=== PATIENT | female | born 1965 | race Two or more races ===

== ENCOUNTER 2022-08-03 08:55 | Inpatient (IN) | payer BC ==
[~2022-08-03] VITALS: Ht 175.3 cm; Wt 84.8 kg
--- NOTE | 2022-08-03 09:00 | NUR ---
RECEIVED PT 57 YRS FEMALE FROM HOME C/O ABDOMINALE PAIN FOR 10 YRS ANDD DIARRHEA THIS MORNING abdomin soft none tender to touch
--- NOTE | 2022-08-03 09:10 | NUR ---
inserted ang catheter g [address] on [address] wrist blood drow and sent to lab
[2022-08-03] MEDS ORDERED: ONDANSETRON HCL/PF 4 MG/2 ML VIAL ONE ×2 (09:27→14:33)
[2022-08-03] MEDS ORDERED: MORPHINE SULFATE INJ 4 MG/ML DISP.SYRIN ONE ×3 (09:28→14:33)
[2022-08-03] MEDS ORDERED: IV NS 0.9% 1,000 ML BAG IV ONE (09:30)
[2022-08-03] MEDS ORDERED: MORPHINE SULFATE INJ 2 MG/ML DISP.SYRIN IV ONE ×2 (09:30→14:00)
[2022-08-03] MEDS ORDERED: ONDANSETRON HCL/PF 4 MG/2 ML VIAL IVP ONE (09:30)
[2022-08-03 09:35] LABS: BASOPHILS % (AUTO) 0.2 % (0.0-2.0); EOSINOPHILS % (AUTO) 0.5 % (0.0-6.0); HEMATOCRIT 46 % (33-45); HEMOGLOBIN 14.4 g/dL (11.5-14.8); LYMPHOCYTES # (AUTO) 0.6 K/uL (0.8-4.8); LYMPHOCYTES % (AUTO) 6.7 % (20.0-44.0); MEAN CORPUSCULAR HGB CONC 31 g/dl (31.0-36.0); MEAN CORPUSCULAR VOLUME 86 fL (82-100); MONOCYTES # (AUTO) 0.4 K/uL (0.1-1.30); NEUTROPHILS # (AUTO) 8.6 K/uL (1.8-8.9); NEUTROPHILS % (AUTO) 88.6 % (43.0-81.0); PLATELET COUNT (AUTO) 281 K/uL (150-450); RED BLOOD CELL COUNT(AUTO) 5.35 MIL/uL (4.0-5.2); WHITE BLOOD COUNT (AUTO) 9.7 K/uL (4.3-11.0)
[2022-08-03 09:43] LABS: CALCIUM, SERUM 8.4 mg/dL (8.5-10.1); CREATININE 1.7 mg/dL (0.6-1.3)
[2022-08-03 09:49] LABS: ALBUMIN 3.5 g/dL (3.4-5.0); BILIRUBIN,DIRECT 0.2 mg/dL (0.0-0.2); BILIRUBIN,TOTAL 0.9 mg/dL (0.2-1.0); TOTAL PROTEIN, SERUM 7.2 g/dL (6.4-8.2)
[2022-08-03] MEDS ORDERED: IV NS 0.9% 1,000 ML IV ONE (10:00)
[2022-08-03] MEDS ORDERED: CT SWABBABLE VALVE TRANS SET 1 EA INFUS.SET MC ONE (10:28)
[2022-08-03] MEDS ORDERED: IOHEXOL-300 100 ML VIAL IV ONE (10:28)
[2022-08-03] MEDS ORDERED: IV NS 0.9% 250 ML IV ONE (10:29)
--- NOTE | 2022-08-03 10:32 | NUR ---
TO CT SCAN OF ABDOMIN
--- NOTE | 2022-08-03 11:32 | NUR ---
I&O CATHETER DONE FR 15 RED KAI CATHETER OUT PUT 150ML YELLOW COLOR
--- NOTE | 2022-08-03 11:33 | NUR ---
I&O catheter done urine sent to lab
--- NOTE | 2022-08-03 11:40 | NUR ---
COVID SWAB SENT TO LAB
--- NOTE | 2022-08-03 12:00 | NUR ---
MOVE SHEET SUBMITTED.
[2022-08-03 12:19] LABS: BILIRUBIN,URINE NEGATIVE (NEGATIVE); COLOR,URINE YELLOW (YELLOW); LEUKOCYTE ESTERASE ,URINE NEGATIVE (NEGATIVE); NITRITE, URINE NEGATIVE (NEGATIVE); PH,URINE 5.5 (5.0-8.0); PROTEIN,URINE TRACE mg/dl (NEGATIVE); UGLUCOSE 1+ mg/dL (NEGATIVE); UROBILINOGEN,URINE 0.2 EU/dL (0.2)
--- NOTE | 2022-08-03 13:05 | NUR ---
RESTING AND ASLEEPY NO PAIN NOTED
[2022-08-03 13:11] LABS: CALCIUM, SERUM 6.8 mg/dL (8.5-10.1); CREATININE 1.4 mg/dL (0.6-1.3); POTASSIUM 3.4 mmol/L (3.5-5.1)
[2022-08-03] MEDS ORDERED: ONDANSETRON HCL/PF 4 MG/2 ML VIAL IV ONE (14:00)
--- NOTE | 2022-08-03 14:15 | NUR ---
C/O ABDOMINALE PAIN 10/25 DR. PAIGE AWARE ORDER WAS GIVEN
[2022-08-03] MEDS ORDERED: MORPHINE SULFATE INJ 2 MG/ML DISP.SYRIN ONE (14:33)
--- NOTE | 2022-08-03 15:17 | NUR ---
RESTING AND ASLEEPY PAIN 0/10
[2022-08-03] MEDS ORDERED: PRED10TA PO (15:35)
[2022-08-03] MEDS ORDERED: PANT40TA2 PO (15:35)
[2022-08-03] MEDS ORDERED: DICY20TA11 PO (15:35)
[2022-08-03] MEDS ORDERED: HYDR4TAB57 PO (15:35)
[2022-08-03] MEDS ORDERED: COLE1TAB2 PO (15:35)
[2022-08-03] MEDS ORDERED: ONDA4TAB11 PO (15:35)
--- NOTE | 2022-08-03 16:09 | NUR ---
[facility] CALLED TEXTILE CONVERSION MANAGER PAGED.
--- NOTE | 2022-08-03 16:39 | NUR ---
GOT BED 329-1 ADMITTING INFORMED.
--- NOTE | 2022-08-03 17:15 | NUR ---
HAND OFF LAURITA CORTEZ TO ROOM 329-1 VIA SINAN DAVIS
--- NOTE | 2022-08-03 17:30 | NUR ---
URINE OUT PUT 650 ML YELLOW CLOUDY COLOR
[2022-08-03 18:00] VITALS: BP 113/66
[2022-08-03] MEDS ORDERED: DEXTROSE 50%-WATER 50 ML DISP.SYRIN IV PRN (18:00)
[2022-08-03] MEDS ORDERED: predniSONE 10 MG TABLET PO SCH (18:00)
[2022-08-03] MEDS ORDERED: ACETAMINOPHEN 325 MG TABLET PO PRN (18:00)
[2022-08-03] MEDS ORDERED: *INSULIN REGULAR(HUMULIN R)HUM 100 UNIT/ML VIAL SQ PRN (18:00)
[2022-08-03] MEDS ORDERED: DIPHENOXYLATE HCL/ATROP SULF 1 UDTAB TABLET PO PRN (18:00)
[2022-08-03] MEDS ORDERED: Z GUARD REMEDY 4 OZ OINT TP PRN (18:00)
--- NOTE | 2022-08-03 19:05 | NUR ---
MS RN RECEIVED A NEW ADMISSION FROM ED, 57 YEAR OLD FEMALE, CAME IN W/ CC OF ABD/DIARRHEA, DX GASTROENTERITIS, AWAKE ALERR,ORIENTED X4, ON ROOM AIR W/ ADEQUATE SATURATION DENIES PAIN AT THIS TIME, ALL NEEDS ATTENDED, WILL CONTONUE TO MONITOR PATIENT.WILL ENDORSED TO NEXT SHIFT FOR PIO.
[2022-08-03] MEDS: MORPHINE SULFATE INJ 2 MG/ML DISP.SYRIN IV PRN (19:12)
[2022-08-03] MEDS: ENOXAPARIN SODIUM 40 MG/0.4 ML DISP.SYRIN SQ SCH (19:13)
--- NOTE | 2022-08-03 19:45 | NUR ---
SUBSTATION OPERATOR CHIEF NOTES RECEIVED LYING ON BED SLEEPING,AROUSABLE TO VERBAL STIMULI,BREATHING EASY,NO SOB.SALINE LOCK RIGHT AND LEFT ARM INTACT AND PATENT.FALL PRECAUTION OBSERVED,BED ALARM,WILL CONTINUE TO MONITOR STATUS,CALL LIGHT IN REACH,NEEDS ANTICIPATED.
[2022-08-03 20:00] VITALS: BP_SYST 112; BP_DIAS 66; BP_DIAS 68
[2022-08-03] MEDS: Potassium Chloride 20 MEQ in IV NS 0.9% 1,000 ML IV PRN (20:11)
--- NOTE | 2022-08-03 20:11 | NUR ---
MS RN NOTES STARTED ON IVF NS WITH 20MEQ KCL,INFUSING AT 100 ML/HR RATE ON LEFT ARM SALINE LOCK VIA IV PUMP.
--- NOTE | 2022-08-03 22:00 | NUR ---
BAND STRAIGHTENER NOTES ACCU-CHECK BLOOD SUGAR CHECK 125MG/DL,NO INSULIN COVERAGE.
[2022-08-03] MEDS: BLOOD SUGAR DIAGNOSTIC 1 EACH STRIP IN SCH (22:49)
--- NOTE | 2022-08-04 00:15 | NUR ---
MS RN NOTES AWAKE THIS TIME,ASSISTED TO THE BATHROOM,VOIDED.
[2022-08-04] MEDS: MORPHINE SULFATE INJ 2 MG/ML DISP.SYRIN IV PRN ×5 (00:23→22:46)
--- NOTE | 2022-08-04 00:23 | NUR ---
MS RN NOTES PAIN MANAGEMENT C/O ABDOMINAL PAIN 8/10 ON PAIN SCALE.MORPHINE 2MG IV GIVEN ORDERED AND PER PATIENT REQUEST.
[2022-08-04] MEDS: BLOOD SUGAR DIAGNOSTIC 1 EACH STRIP IN SCH ×4 (05:37→21:44)
--- NOTE | 2022-08-04 06:00 | NUR ---
MS RN NOTES ACCU-CHECK BLOOD SUGAR CHECK 105MG/DL,NO INSULIN COVERAGE
--- NOTE | 2022-08-04 06:22 | NUR ---
MS RN NOTES SLEEP WELL WITH PAIN MANAGEMENT,ABLE TO WALK TO THE RESTROOM WITH ASSIST,PRESENT IVF TOLERATED WELL IN NO ACUTE DISTRESS.
[2022-08-04 06:56] LABS: BASOPHILS % (AUTO) 0.7 % (0.0-2.0); EOSINOPHILS % (AUTO) 1.5 % (0.0-6.0); HEMATOCRIT 35 % (33-45); HEMOGLOBIN 11.1 g/dL (11.5-14.8); LYMPHOCYTES % (AUTO) 22.1 % (20.0-44.0); MEAN CORPUSCULAR HGB CONC 31 g/dl (31.0-36.0); MEAN CORPUSCULAR VOLUME 85 fL (82-100); MONOCYTES # (AUTO) 0.3 K/uL (0.1-1.30); MONOCYTES % (AUTO) 6.5 % (2.0-12.0); NEUTROPHILS # (AUTO) 3.1 K/uL (1.8-8.9); NEUTROPHILS % (AUTO) 69.2 % (43.0-81.0); PLATELET COUNT (AUTO) 190 K/uL (150-450); RED BLOOD CELL COUNT(AUTO) 4.15 MIL/uL (4.0-5.2); WHITE BLOOD COUNT (AUTO) 4.4 K/uL (4.3-11.0)
--- NOTE | 2022-08-04 07:30 | NUR ---
RN MS NOTES PT IN BED, AWAKE, ALERT AND ORIENTED, NO COMPLAINT OF PAIN OR ANY DISCOMFORT AT THIS TIME, BREATHING PATTERN NORMAL, CALL LIGHT WITHIN REACH, NEEDS ATTENDED.
[2022-08-04 07:35] LABS: ALBUMIN 2.5 g/dL (3.4-5.0); BILIRUBIN,TOTAL 0.6 mg/dL (0.2-1.0); CALCIUM, SERUM 7.7 mg/dL (8.5-10.1); CREATININE 1.1 mg/dL (0.6-1.3); PHOSPHORUS 2.6 mg/dL (2.5-4.9); POTASSIUM 3.9 mmol/L (3.5-5.1); TOTAL PROTEIN, SERUM 5.4 g/dL (6.4-8.2)
[2022-08-04 07:41] LABS: THYROID STIMULATING HORMONE 0.269 uIU/mL (0.358-3.74)
[2022-08-04 08:00] VITALS: BP 137/77
[2022-08-04] MEDS: PANTOPRAZOLE 40 MG TABLET.DR PO SCH (08:45)
[2022-08-04] MEDS: DICYCLOMINE HCL 10 MG/5 ML UDC PO SCH ×3 (08:46→17:51)
[2022-08-04] MEDS: Potassium Chloride 20 MEQ in IV NS 0.9% 1,000 ML IV PRN (12:41)
--- NOTE | 2022-08-04 13:31 | NUR ---
RN MS NOTES PT SEEN AND EXAMINED BY DR. FIERRO, PLAN OF CARE DISCUSSED WITH PT, VERBALIZED UNDERSTANDING, PAIN MEDS GIVEN ORDERED, AMBULATES TO THE BATHROOM WITH STEADY GAIT.
[2022-08-04 16:00] VITALS: BP 103/82
[2022-08-04] MEDS: ENOXAPARIN SODIUM 40 MG/0.4 ML DISP.SYRIN SQ SCH (17:52)
--- NOTE | 2022-08-04 18:24 | NUR ---
RN MS NOTES PT IN BED, AWAKE, ALERT AND ORIENTED, PAIN MEDS GIVEN ORDERED, ABLE TO AMBULATE TO THE BATHROOM NEEDED, HAD SMALL BM THIS AFTERNOON, PASTY IN CONSISTENCY, NO DIARRHEA NOTED, ASSISTED WITH DINNER, BS CHECKED, NO S/S OF HYPO/HYPERGLYCEMIA NOTED, ALL NEEDS ATTENDED, IV FLUIDS INFUSING WELL.
--- NOTE | 2022-08-04 19:35 | NUR ---
RN MS NOTES PT IN BED, AWAKE, ALERT AND ORIENTED, ABLE TO AMBULATE TO THE BATHROOM NEEDED, ALL NEEDS ATTENDED, IV FLUIDS INFUSING WELL. CALL LIGHT WITHIN REACH. TABLE WITHIN REACH.
[2022-08-04 20:00] VITALS: BP 123/80
[2022-08-04] MEDS: INSULIN REGULAR, HUMAN 100 UNIT/ML 3 ML VIAL SQ PRN (21:45)
--- NOTE | 2022-08-04 21:45 | NUR ---
RN NOTE PT REFUSED INSULIN AT THIS ITME " MY SUGAR TENDS TO DROP I DONT WANT IT WE CAN CHECK IN THE MORNING IF ITS HIGH I WILL TAKE IT THEN. EDUCATION PROVIDED. REFUSED X3
--- NOTE | 2022-08-04 22:55 | NUR ---
RN NOTE PRN MORPHINE GIVEN FRO PAIN 8 TOLERATED WELL.
[2022-08-05] MEDS: Potassium Chloride 20 MEQ in IV NS 0.9% 1,000 ML IV PRN ×2 (03:24→17:49)
[2022-08-05] MEDS: INSULIN REGULAR, HUMAN 100 UNIT/ML 3 ML VIAL SQ PRN (06:26)
[2022-08-05] MEDS: BLOOD SUGAR DIAGNOSTIC 1 EACH STRIP IN SCH ×4 (06:32→21:32)
[2022-08-05 07:00] VITALS: BP 92/47
[2022-08-05 07:08] LABS: BASOPHILS % (AUTO) 0.8 % (0.0-2.0); EOSINOPHILS % (AUTO) 5.3 % (0.0-6.0); HEMATOCRIT 34 % (33-45); HEMOGLOBIN 10.6 g/dL (11.5-14.8); LYMPHOCYTES # (AUTO) 1.2 K/uL (0.8-4.8); LYMPHOCYTES % (AUTO) 31.4 % (20.0-44.0); MEAN CORPUSCULAR HGB CONC 32 g/dl (31.0-36.0); MEAN CORPUSCULAR VOLUME 85 fL (82-100); MONOCYTES # (AUTO) 0.3 K/uL (0.1-1.30); MONOCYTES % (AUTO) 8.6 % (2.0-12.0); NEUTROPHILS % (AUTO) 53.9 % (43.0-81.0); PLATELET COUNT (AUTO) 171 K/uL (150-450); RED BLOOD CELL COUNT(AUTO) 3.96 MIL/uL (4.0-5.2); WHITE BLOOD COUNT (AUTO) 3.8 K/uL (4.3-11.0)
[2022-08-05 07:24] LABS: CREATININE 0.8 mg/dL (0.6-1.3); MAGNESIUM 2.1 mg/dL (1.8-2.4); PHOSPHORUS 2.3 mg/dL (2.5-4.9); POTASSIUM 4.2 mmol/L (3.5-5.1)
--- NOTE | 2022-08-05 07:40 | NUR ---
MS RN OPENING NOTES RECEIVED PATIENT IN BED, ASLEEP BUT EASY TO AROUSE. A/O X4, ABLE TO MAKE NEEDS KNOWN. NO SIGNS OF ACUTE DISTRESS NOTED. ON ROOM AIR. TOLERATING WELL. NO SOB NOTED, BREATHING EVEN AND UNLABORED. NOTED WITH IV ACCESS ON LFA #20G RUNNING WITH NS + KCL 20 PATRICIA AT 100ML/HR. PATIENT DENIES ANY PAIN AT THIS TIME. SAFETY MEASURES PUT IN PLACE. BED IN LOW AND LOCKED POSITION. SIDE RAILS UP X2; CALL LIGHT AND TABLE WITHIN EASY REACH. WILL CONTINUE WITH PLAN OF CARE.
[2022-08-05] MEDS: PANTOPRAZOLE 40 MG TABLET.DR PO SCH (08:26)
[2022-08-05] MEDS: MORPHINE SULFATE INJ 2 MG/ML DISP.SYRIN IV PRN ×4 (08:31→21:33)
--- NOTE | 2022-08-05 08:31 | NUR ---
MS RN PRN MORPHINE 2MG GIVEN FOR ABDOMINAL PAIN 10/10 ON A NUMERIC PAIN SCALE, TOLERATED WELL. WILL CONTINUE TO MONITOR PATIENT.
[2022-08-05] MEDS: DICYCLOMINE HCL 10 MG/5 ML UDC PO SCH ×3 (08:39→17:32)
[2022-08-05] MEDS ORDERED: K PHOS NEUTRAL 250 MG TABLET PO ONE (09:30)
--- NOTE | 2022-08-05 12:42 | NUR ---
MS RN PRN MORPHINE 2MG GIVEN FOR ABDOMINAL PAIN 10/10 ON A NUMERIC PAIN SCALE, TOLERATED WELL. WILL CONTINUE TO MONITOR PATIENT.
[2022-08-05 16:00] VITALS: BP 113/77
--- NOTE | 2022-08-05 17:33 | NUR ---
MS RN PRN MORPHINE 2MG GIVEN FOR ABDOMINAL PAIN 10/10 ON A NUMERIC PAIN SCALE, TOLERATED WELL. WILL CONTINUE TO MONITOR PATIENT.
[2022-08-05] MEDS: ENOXAPARIN SODIUM 40 MG/0.4 ML DISP.SYRIN SQ SCH (17:49)
--- NOTE | 2022-08-05 19:04 | NUR ---
MS RN CLOSING NOTES PATIENT IN BED, AWAKE. A/O X4, ABLE TO MAKE NEEDS KNOWN. NO SIGNS OF ACUTE DISTRESS NOTED. ON ROOM AIR. TOLERATED WELL. NO SOB NOTED, BREATHING EVEN AND UNLABORED. NOTED WITH IV ACCESS ON RH #20G RUNNING WITH NS + KCL 20 PATRICIA AT 100ML/HR. PATIENT DENIES ANY PAIN AT THIS TIME. ALL DUE MEDS GIVEN. ALL NURSING NEEDS ATTENDED. SAFETY MEASURES IMPLEMENTED. BED IN LOW AND LOCKED POSITION. SIDE RAILS UP X2; CALL LIGHT AND TABLE WITHIN EASY REACH. WILL CONTINUE WITH PLAN OF CARE.
[2022-08-05] MEDS: ONDANSETRON HCL/PF 4 MG/2 ML VIAL IVP PRN (19:42)
--- NOTE | 2022-08-05 19:46 | NUR ---
MS RN OPENING NOTE PATIENT AWAKE IN BED,A/O X4, ABLE TO MAKE NEEDS KNOWN. PT STABLE ON RA, NO S/S OF DISTRESS OR SOB NOTED, BREATHING EVEN AND UNLABORED. IV ACCESS ON RIGHT HAND #20G INTACT AND INFUSING NS + KCL 20 PATRICIA AT 100ML/HR. PATIENT C/O NAUSEA, PRN ZOFRAN 4 MG Q6H IV GIVEN ORDERED. SAFETY MEASURES IN PLACE: BED LOCKED IN LOW POSITION, SIDE RAILS UP X 2, CALL LIGHT AND TABLE WITHIN REACH. WILL CONTINUE TO MONITOR
[2022-08-05 20:00] VITALS: BP 120/78
[2022-08-06] MEDS: Potassium Chloride 20 MEQ in IV NS 0.9% 1,000 ML IV PRN (04:52)
[2022-08-06] MEDS: BLOOD SUGAR DIAGNOSTIC 1 EACH STRIP IN SCH ×2 (06:34→11:40)
[2022-08-06] MEDS: INSULIN REGULAR, HUMAN 100 UNIT/ML 3 ML VIAL SQ PRN (06:34)
--- NOTE | 2022-08-06 06:41 | NUR ---
MS RN CLOSING NOTE PATIENT SLEEPING IN BED, A/O X 4, ABLE TO MAKE NEEDS KNOWN. PT STABLE ON RA, NO S/S OF DISTRESS OR SOB NOTED, BREATHING EVEN AND UNLABORED. IV ACCESS ON RIGHT HAND #20G INTACT AND INFUSING NS + KCL 20 PATRICIA AT 100ML/HR. NO SIGNIFICANT CHANGES, MEDICATIONS GIVEN ORDERED, PT NEEDS MET THROUGHOUT SHIFT. NO BOWEL MOVEMENT THIS SHIFT. SAFETY MEASURES IN PLACE: CALL LIGHT WITHIN REACH, SIDE RAILS UP X 2, BED LOCKED IN LOWEST POSITION, HOB ELEVATED, BED ALARM ON. WILL ENDORSE TO DAYSHIFT RN FOR CONTINUITY OF CARE
[2022-08-06 07:00] VITALS: BP 134/76
[2022-08-06 07:24] LABS: BASOPHILS % (AUTO) 0.7 % (0.0-2.0); EOSINOPHILS % (AUTO) 4.6 % (0.0-6.0); HEMATOCRIT 33 % (33-45); HEMOGLOBIN 10.5 g/dL (11.5-14.8); LYMPHOCYTES # (AUTO) 1.3 K/uL (0.8-4.8); LYMPHOCYTES % (AUTO) 27.7 % (20.0-44.0); MEAN CORPUSCULAR HGB CONC 32 g/dl (31.0-36.0); MEAN CORPUSCULAR VOLUME 87 fL (82-100); MONOCYTES # (AUTO) 0.4 K/uL (0.1-1.30); MONOCYTES % (AUTO) 7.6 % (2.0-12.0); NEUTROPHILS # (AUTO) 2.8 K/uL (1.8-8.9); NEUTROPHILS % (AUTO) 59.4 % (43.0-81.0); PLATELET COUNT (AUTO) 173 K/uL (150-450); RED BLOOD CELL COUNT(AUTO) 3.86 MIL/uL (4.0-5.2); WHITE BLOOD COUNT (AUTO) 4.8 K/uL (4.3-11.0)
[2022-08-06 07:32] LABS: CALCIUM, SERUM 8.1 mg/dL (8.5-10.1); CREATININE 0.7 mg/dL (0.6-1.3); MAGNESIUM 1.9 mg/dL (1.8-2.4); PHOSPHORUS 2.7 mg/dL (2.5-4.9); POTASSIUM 4.1 mmol/L (3.5-5.1)
--- NOTE | 2022-08-06 08:00 | NUR ---
MS RN OPENING NOTE PATIENT SLEEPING IN BED, A/O X 4, ABLE TO MAKE NEEDS KNOWN. PT STABLE ON RA, NO S/S OF DISTRESS OR SOB NOTED, BREATHING EVEN AND UNLABORED. IV ACCESS ON RIGHT HAND #20G INTACT AND INFUSING NS + KCL 20 PATRICIA AT 100ML/HR. SAFETY MEASURES IN PLACE: CALL LIGHT WITHIN REACH, SIDE RAILS UP X 2, BED LOCKED IN LOWEST POSITION, HOB ELEVATED, BED ALARM ON. WILL CONTINUE TO MONITOR.
[2022-08-06] MEDS: PANTOPRAZOLE 40 MG TABLET.DR PO SCH (08:20)
[2022-08-06] MEDS: DICYCLOMINE HCL 10 MG/5 ML UDC PO SCH (08:24)
[2022-08-06] MEDS: MORPHINE SULFATE INJ 2 MG/ML DISP.SYRIN IV PRN (08:25)
[2022-08-06] MEDS: ONDANSETRON HCL/PF 4 MG/2 ML VIAL IVP PRN (10:02)
[2022-08-06] MEDS ORDERED: Potassium Chloride 20 MEQ in IV NS 0.9% 1,000 ML IV SCH (10:33)
--- NOTE | 2022-08-06 12:30 | NUR ---
DISCHARGED NOTES PATIENT DISCHARGED TO HOME IN STABLE CONDITION, A/OX4. ON RA, TOLERATING WELL. VITALS TAKEN, STABLE AND RECORDED. DISCHARGED INSTRUCTIONS/ EDUCATION RELAYED TO PATIENT. ALL BELONGINGS ACCOUNTED TO THE PATIENT. IV ACCESS REMOVED ASEPTICALLY. PATIENT LEFT THE UNIT VIA WHEELCHAIR ACCOMPANIED BY CHILDREN. DISCHARGED.
== END 2022-08-06 12:10 | disposition home or self-care (01) | DRG 640 ==
LOC: ER 08:55 → MED 17:30
PROVIDERS: ADMIT Nurse Practitioner Acute Care; ATTEND Nurse Practitioner Acute Care
DX: E86.0 Dehydration (principal); N17.0 Acute kidney failure with tubular necrosis; G83.4 Cauda equina syndrome; E11.65 Type 2 diabetes mellitus with hyperglycemia; E87.1 Hypo-osmolality and hyponatremia; Z20.822 Contact with and (suspected) exposure to COVID-19; Z98.84 Bariatric surgery status; Z88.1 Allergy status to other antibiotic agents; Z88.2 Allergy status to sulfonamides; Z79.899 Other long term (current) drug therapy; E87.6 Hypokalemia; E87.20 Acidosis, unspecified; G89.4 Chronic pain syndrome; K21.9 Gastro-esophageal reflux disease without esophagitis; Z79.52 Long term (current) use of systemic steroids; Z87.891 Personal history of nicotine dependence; Z87.440 Personal history of urinary (tract) infections; K57.30 Diverticulosis of large intestine without perforation or abscess without bleeding; Z90.49 Acquired absence of other specified parts of digestive tract
CPT/HCPCS: 36415; 80048-TC; 80053-TC; 80061-TC; 80076-TC; 82962-TC; 83690-TC; 83735-TC; 84100-TC; 84443-TC; 85025-TC; 87081-TC; A4223; C9803; G0378; J1650; J1815; J2270; J2405; J3480; J7030; J7050; Q9967

== ENCOUNTER 2024-08-23 20:22 | Emergency (ER) | payer BC, OTHER ==
[~2024-08-23] VITALS: Ht 175.3 cm; Wt 81.6 kg
[~2024-08-23 20:22] MED LIST: COLE1TAB2 PO; DICY20TA11 PO; HYDR4TAB57 PO; ONDA4TAB11 PO; PANT40TA2 PO; PRED10TA PO
[2024-08-23] MEDS: LIDOCAINE VISCOUS 2% UD 15 ML UDC MM ONE (20:24)
[2024-08-23] MEDS ORDERED: ONDANSETRON HCL/PF 4 MG/2 ML VIAL ONE (21:29)
[2024-08-23] MEDS ORDERED: FAMOTIDINE/PF INJ 20 MG/2 ML VIAL IV ONE (21:30)
[2024-08-23 21:34] LABS: BASOPHILS # (AUTO) 0.1 K/uL (0.0-0.2); BASOPHILS % (AUTO) 0.6 % (0.0-2.0); EOSINOPHILS % (AUTO) 0.5 % (0.0-6.0); HEMATOCRIT 39 % (33-45); LYMPHOCYTES # (AUTO) 2.1 K/uL (0.8-4.8); LYMPHOCYTES % (AUTO) 24.1 % (20.0-44.0); MEAN CORPUSCULAR HEMOGLOBIN 31 PG (26.0-33.0); MEAN CORPUSCULAR HGB CONC 33 g/dl (31.0-36.0); MEAN CORPUSCULAR VOLUME 93 fL (82-100); MONOCYTES # (AUTO) 0.5 K/uL (0.1-1.30); MONOCYTES % (AUTO) 5.7 % (2.0-12.0); NEUTROPHILS # (AUTO) 6.2 K/uL (1.8-8.9); NEUTROPHILS % (AUTO) 69.1 % (43.0-81.0); PLATELET COUNT (AUTO) 257 K/uL (150-450); RED BLOOD CELL COUNT(AUTO) 4.21 MIL/uL (4.0-5.2); RED CELL DISTRIBUTION WIDTH 12.7 % (11.5-15.0); WHITE BLOOD COUNT (AUTO) 8.9 K/uL (4.3-11.0)
[2024-08-23] MEDS: ONDANSETRON HCL/PF 4 MG/2 ML VIAL IVP ONE (21:35)
[2024-08-23] MEDS: IV NS 0.9% 1,000 ML BAG IV ONE (21:35)
[2024-08-23] MEDS: FAMOTIDINE/PF INJ 20 MG/2 ML VIAL IV ONE (21:37)
[2024-08-23 21:42] LABS: CALCIUM, SERUM 8.9 mg/dL (8.5-10.1); CARBON DIOXIDE 23 mmol/L (21-32); CHLORIDE 105 mmol/L (98-107); CREATININE 0.9 mg/dL (0.6-1.3); GLUCOSE 172 mg/dL (74-106); POTASSIUM 3.3 mmol/L (3.5-5.1); SODIUM SERUM 137 mmol/L (136-145); UREA NITROGEN, BLOOD 12 mg/dL (7-18)
[2024-08-23 21:47] LABS: ALANINE AMINOTRANSFERASE 19 U/L (12-78); ALBUMIN 3.1 g/dL (3.4-5.0); ALKALINE PHOSPHATASE 136 U/L (46-116); ASPARTATE AMINOTRANSFERASE 19 U/L (15-37); BILIRUBIN,DIRECT 0.2 mg/dL (0.0-0.2); BILIRUBIN,TOTAL 0.3 mg/dL (0.2-1.0); LIPASE 52 U/L (16-77); TOTAL PROTEIN, SERUM 6.7 g/dL (6.4-8.2)
[2024-08-23] MEDS ORDERED: HYDROMORPHONE 1 MG/1 ML DISP.SYRIN ONE (22:15)
[2024-08-23] MEDS ORDERED: LIDOCAINE VISCOUS 2% UD 15 ML UDC ONE (22:18)
[2024-08-23] MEDS ORDERED: DICYCLOMINE HCL 10 MG CAPSULE PO ONE (22:18)
[2024-08-23] MEDS ORDERED: MAG HYDROX/AL HYDROX/SIMETH 30 ML UDC ONE (22:18)
[2024-08-23] MEDS: DICYCLOMINE HCL 10 MG CAPSULE PO ONE (22:23)
[2024-08-23] MEDS: HYDROMORPHONE 1 MG/1 ML DISP.SYRIN IV ONE (22:24)
[2024-08-23] MEDS: MAG HYDROX/AL HYDROX/SIMETH 30 ML UDC PO ONE (22:24)
[2024-08-23] MEDS ORDERED: POLYETHYLENE GLYCOL 3350 17 GM POWD.PACK ONE (23:20)
[2024-08-23] MEDS ORDERED: SENNOSIDES 8.6 MG TABLET ONE (23:20)
[2024-08-23] MEDS ORDERED: MAGNESIUM CITRATE 296 ML BOTTLE ONE (23:20)
[2024-08-23 23:24] LABS: APPEARANCE,URINE CLEAR (CLEAR); BILIRUBIN,URINE NEGATIVE (NEGATIVE); BLOOD, URINE NEGATIVE Ery/uL (NEGATIVE); COLOR,URINE YELLOW (YELLOW); KETONES,URINE NEGATIVE (NEGATIVE); LEUKOCYTE ESTERASE ,URINE NEGATIVE (NEGATIVE); NITRITE, URINE NEGATIVE (NEGATIVE); PROTEIN,URINE NEGATIVE (NEGATIVE); UGLUCOSE 2+ mg/dL (NEGATIVE); UROBILINOGEN,URINE 0.2 EU/dL (0.2)
[2024-08-23] MEDS: POLYETHYLENE GLYCOL 3350 17 GM POWD.PACK PO ONE (23:30)
[2024-08-23] MEDS: MAGNESIUM CITRATE 296 ML BOTTLE PO ONE (23:30)
[2024-08-23] MEDS: SENNOSIDES/DOCUSATE SODIUM 1 TAB TABLET PO SCH (23:31)
[2024-08-23 23:36] LABS: ADD URINE CULTURE YES; BACTERIA,URINE Moderate /HPF (None Seen); RBC,URINE 0-2 /HPF (0-2); SQUAMOUS EPITHELIAL CELL,UR Few /HPF (None Seen)
[2024-08-23] MEDS ORDERED: SENN8.6T19 PO (23:57)
[2024-08-23] MEDS ORDERED: POLY17PO4 PO (23:57)
[2024-08-23] MEDS ORDERED: OXYC-128 PO (23:58)
[2024-08-24] MEDS: SENNOSIDES/DOCUSATE SODIUM 1 TAB TABLET PO ONE (00:06)
[2024-08-24 00:16] VITALS: BP 125/82; TEMP 98.2; O2SAT 99
== END 2024-08-24 00:16 | disposition home or self-care (01) ==
LOC: ER 20:28
DX: R10.84 Generalized abdominal pain (principal); K59.00 Constipation, unspecified; I10 Essential (primary) hypertension; E11.9 Type 2 diabetes mellitus without complications; E78.5 Hyperlipidemia, unspecified; G89.29 Other chronic pain; Z88.1 Allergy status to other antibiotic agents; Z88.2 Allergy status to sulfonamides; Z98.890 Other specified postprocedural states; Z98.84 Bariatric surgery status; Z60.2 Problems related to living alone; Z79.899 Other long term (current) drug therapy
CPT/HCPCS: 99285; 74176; 96374; 96375; 96361; 93005; 85025; 80048; 83690; 80076; 81001; 36415; 84484; J1308; J2405; J1171; 87086-TC

== ENCOUNTER 2025-02-13 12:19 | Inpatient (IN) | payer OTHER ==
[~2025-02-13] VITALS: Ht 175.3 cm; Wt 88.5 kg
[~2025-02-13 12:19] MED LIST changes: +OXYC-128 PO; +POLY17PO4 PO; +SENN8.6T19 PO
[2025-02-13 12:40] VITALS: O2SAT 98
[2025-02-13] MEDS ORDERED: HYDROMORPHONE 1 MG/1 ML DISP.SYRIN ONE ×3 (13:19→16:03)
[2025-02-13] MEDS: HYDROMORPHONE 1 MG/1 ML DISP.SYRIN IV ONE ×3 (13:24→16:04)
[2025-02-13 13:36] LABS: PLATELET COUNT (AUTO) 233 K/uL (150-450); RED BLOOD CELL COUNT(AUTO) 4.04 MIL/uL (4.0-5.2); RED CELL DISTRIBUTION WIDTH 14.7 % (11.5-15.0); WHITE BLOOD COUNT (AUTO) 5.5 K/uL (4.3-11.0)
[2025-02-13 13:44] LABS: CALCIUM, SERUM 8.0 mg/dL (8.5-10.1); CREATININE 0.9 mg/dL (0.6-1.3); SODIUM SERUM 135.0 mmol/L (136-145); UREA NITROGEN, BLOOD 18.0 mg/dL (7-18)
[2025-02-13 13:49] LABS: INR 1.06 (0.91-1.10)
[2025-02-13 13:55] LABS: ASPARTATE AMINOTRANSFERASE 20.0 U/L (15-37); TOTAL PROTEIN, SERUM 6.2 g/dL (6.4-8.2)
[2025-02-13] MEDS ORDERED: MORPHINE SULFATE INJ 2 MG/ML DISP.SYRIN IV PRN (15:30)
[2025-02-13] MEDS ORDERED: hydrALAZINE HCL IV 20 MG VIAL IV PRN (15:30)
[2025-02-13] MEDS ORDERED: ONDANSETRON HCL/PF 4 MG/2 ML VIAL IVP PRN (15:30)
[2025-02-13] MEDS ORDERED: LACT1CAP69 PO (15:51)
[2025-02-13] MEDS ORDERED: ESZO2TAB31 PO (15:51)
[2025-02-13] MEDS ORDERED: ESTR1TAB17 PO (15:51)
[2025-02-13] MEDS ORDERED: SOLI10TA2 PO (15:51)
[2025-02-13] MEDS ORDERED: ONDA8TAB13 PO (15:51)
[2025-02-13] MEDS ORDERED: DRON2.5C18 PO (15:51)
[2025-02-13] MEDS ORDERED: PROC10TA13 PO (15:51)
[2025-02-13] MEDS ORDERED: PROG100C15 PO (15:51)
[2025-02-13] MEDS ORDERED: SERT50TA12 PO (15:51)
[2025-02-13] MEDS ORDERED: MORPHINE SULFATE INJ 2 MG/ML DISP.SYRIN ONE (16:56)
[2025-02-13] MEDS: DOCUSATE SODIUM LIQ 100 MG/10 ML UDC PO SCH (17:00)
[2025-02-13] MEDS: MORPHINE SULFATE INJ 2 MG/ML DISP.SYRIN IV PRN (17:12)
[2025-02-13] MEDS: HYDROMORPHONE INJ 2 MG/ML DISP.SYRIN IV PRN (17:57)
[2025-02-13 18:00] VITALS: BP 138/71; TEMP 99.5; O2SAT 96
[2025-02-13 20:00] VITALS: BP 126/61; TEMP 98.8; O2SAT 97
[2025-02-14] MEDS: ACETAMINOPHEN 325 MG TABLET PO PRN (00:20)
[2025-02-14 07:30] VITALS: BP 106/68; TEMP 98.1; O2SAT 96
[2025-02-14 07:37] LABS: PLATELET COUNT (AUTO) 243 K/uL (150-450); RED BLOOD CELL COUNT(AUTO) 3.92 MIL/uL (4.0-5.2); RED CELL DISTRIBUTION WIDTH 14.7 % (11.5-15.0); WHITE BLOOD COUNT (AUTO) 6.7 K/uL (4.3-11.0)
[2025-02-14 08:03] LABS: ASPARTATE AMINOTRANSFERASE 13.0 U/L (15-37); CALCIUM, SERUM 8.2 mg/dL (8.5-10.1); CREATININE 0.9 mg/dL (0.6-1.3); PHOSPHORUS 3.7 mg/dL (2.5-4.9); SODIUM SERUM 139.0 mmol/L (136-145); TOTAL PROTEIN, SERUM 5.8 g/dL (6.4-8.2); UREA NITROGEN, BLOOD 17.0 mg/dL (7-18)
[2025-02-14] MEDS: POLYETHYLENE GLYCOL 3350 17 GM POWD.PACK PO SCH (09:00)
[2025-02-14] MEDS ORDERED: ONDANSETRON 4 MG TAB.RAPDIS PO PRN (10:30)
[2025-02-14] MEDS ORDERED: PROCHLORPERAZINE MALEATE 10 MG TABLET PO PRN (10:30)
[2025-02-14] MEDS ORDERED: PROGESTERONE 100 MG XX SCH (10:30)
[2025-02-14] MEDS: SERTRALINE HCL 50 MG TABLET PO SCH (11:45)
[2025-02-14] MEDS: ESTRADIOL 1 MG TABLET PO SCH (12:29)
[2025-02-14] MEDS: OXYBUTYNIN CHLORIDE 5 MG TABLET PO SCH (12:31)
[2025-02-14] MEDS ORDERED: ZOLPIDEM TARTRATE 5 MG TABLET PO PRN (14:00)
[2025-02-14 16:00] VITALS: BP 100/72; TEMP 98.4; O2SAT 95
[2025-02-14] MEDS: PANTOPRAZOLE 40 MG TABLET.DR PO SCH (17:53)
[2025-02-14] MEDS: LACTOBACILLUS RHAMNOSUS GG 1 EACH CAP.SPRINK PO SCH (17:53)
[2025-02-14] MEDS: DRONABINOL 2.5 MG PO SCH (18:08)
[2025-02-14 20:00] VITALS: BP 99/77; TEMP 97.9; O2SAT 98
[2025-02-14] MEDS: HEPARIN SODIUM, PORCINE 5000 UNITS/1 ML VIAL SQ SCH (20:25)
[2025-02-15 06:57] LABS: PLATELET COUNT (AUTO) 221 K/uL (150-450); RED BLOOD CELL COUNT(AUTO) 4.10 MIL/uL (4.0-5.2); RED CELL DISTRIBUTION WIDTH 14.8 % (11.5-15.0); WHITE BLOOD COUNT (AUTO) 7.0 K/uL (4.3-11.0)
[2025-02-15 07:09] LABS: CALCIUM, SERUM 8.2 mg/dL (8.5-10.1); CREATININE 0.8 mg/dL (0.6-1.3); SODIUM SERUM 142.0 mmol/L (136-145); UREA NITROGEN, BLOOD 15.0 mg/dL (7-18)
[2025-02-15 09:08] VITALS: BP 99/72; TEMP 98.2; O2SAT 95
[2025-02-15] MEDS: METHOCARBAMOL (500MG) 500 MG TABLET PO SCH (17:55)
[2025-02-15] MEDS ORDERED: HYDROMORPHONE HCL 2 MG TABLET PO PRN (18:00)
[2025-02-15] MEDS: HYDROMORPHONE INJ 2 MG/ML DISP.SYRIN IV PRN (19:39)
[2025-02-15 20:00] VITALS: BP 125/61; TEMP 98.6; O2SAT 99
[2025-02-16 07:00] VITALS: BP 126/71; TEMP 98.1; O2SAT 98
[2025-02-16] MEDS ORDERED: DOCU50LI PO (12:04)
[2025-02-16] MEDS ORDERED: POLY17PO29 PO (12:04)
[2025-02-16] MEDS ORDERED: APIX5TAB PO (12:04)
[2025-02-16] MEDS ORDERED: NALO4SPR BNOSTRILS (12:04)
[2025-02-16] MEDS ORDERED: METH750T3 PO (12:04)
[2025-02-16] MEDS ORDERED: HYDR4TAB57 PO (12:04)
[2025-02-16] MEDS ORDERED: HYDR12TA PO (12:04)
[2025-02-16 16:00] VITALS: BP 103/69; TEMP 97.2; O2SAT 95
== END 2025-02-16 18:00 | disposition home or self-care (01) | DRG 536 ==
LOC: ER 12:28 → MED 16:28
PROVIDERS: ADMIT Internal Medicine; ATTEND Nurse Practitioner Acute Care
DX: S72.115A Nondisplaced fracture of greater trochanter of left femur, initial encounter for closed fracture (principal); F32.A Depression, unspecified; K21.9 Gastro-esophageal reflux disease without esophagitis; Z90.49 Acquired absence of other specified parts of digestive tract; Z98.84 Bariatric surgery status; Z98.890 Other specified postprocedural states; Z79.899 Other long term (current) drug therapy; Z87.19 Personal history of other diseases of the digestive system; W18.30XA Fall on same level, unspecified, initial encounter; Y92.9 Unspecified place or not applicable; Z88.1 Allergy status to other antibiotic agents; Z88.5 Allergy status to narcotic agent; Z88.2 Allergy status to sulfonamides; Z88.8 Allergy status to other drugs, medicaments and biological substances; G89.4 Chronic pain syndrome; Z79.891 Long term (current) use of opiate analgesic; Z87.891 Personal history of nicotine dependence
CPT/HCPCS: 36415; 71045-TC; 73502; 73552; 73562; 73700-TC; 80048-TC; 80053-TC; 83735-TC; 84100-TC; 85025-TC; 85610-TC; 85730-TC; 86850-TC; 93307-TC; 97110-TC; 97116-TC; 97530-TC; 97535-TC; G0378; J1171; J1644; J2270; Q0167